=== PATIENT | male | born 1965 | race Caucasian/White ===

== ENCOUNTER → 2019-12-19 | Emergency (ER) | payer OTHER ==
[~2019-12-19] VITALS: Ht 175.3 cm; Wt 72.6 kg
[~2019-12-19] MED LIST: KETOROLAC TROMETHAMINE INJ 60 MG/2 ML VIAL IM ONE
[2019-12-19 08:51] VITALS: BP 101/67
--- NOTE | 2019-12-19 08:55 | NUR ---
SEEN AND EXAMINED BY .
--- NOTE | 2019-12-19 09:11 | NUR ---
Patient discharged to home in stable condition. Written and verbal after care instructions given. Patient verbalizes understanding of instruction.
== END ==
LOC: ER 08:55
DX: M54.5 Low back pain (principal)
CPT/HCPCS: 96372; 99283; J1885; J7030